=== PATIENT | male | born 1985 | race African-American/Black ===

== ENCOUNTER 2020-05-19 10:57 | Emergency (ER) | payer OTHER, SELFPAY ==
--- NOTE | 2020-05-19 | XR_ITS ---
EXAMINATION: XR HAND, RIGHT CLINICAL INFORMATION: Crushing injury third finger COMPARISON: None TECHNIQUE: PA, lateral, and oblique views of the right hand. FINDINGS: There is no evidence of acute fracture or dislocation of the right hand or wrist. No radiopaque foreign body identified. There is mild soft tissue prominence about the distal third phalanx. There appears be a small soft tissue laceration about the volar aspect. No degenerative changes seen. XR/XR hand RT min 3V IMPRESSION: No evidence of acute fracture or dislocation of the right hand or wrist.
[2020-05-19 11:14] VITALS: BP 121/66; PULSE 58; RESP 18; TEMP 36.4; O2SAT 98; BMI 23.7
--- NOTE | 2020-05-19 12:11 | ED_ITS ---
HPI - Extremity Problem General Chief complaint: Extremity Injury, Upper Stated complaint: finger inj,work related Time Seen by Provider: 05/19/20 11:29 Source: patient Mode of arrival: ambulatory Limitations: no limitations History of Present Illness HPI Narrative: 34-year-old male presenting to the ED after sustaining a work related injury he works for [employer] and when attempting to lower a dock plate it fell onto his right hand 3rd digit he sustained a laceration this occurred at approximately 04:00am prior to arrival and since then has been having numbness to the finger although reports a chronic history of right arm numbness worse since the crush injury. Reports he is not up-to-date on tetanus. Denies any fevers, drainage, inability to move the finger any other injuries complaints or concerns at this time. Related Data Home Medications Medication Instructions Recorded Confirmed No Known Home Meds 04/26/20 04/26/20 Previous Rx's Medication Instructions Recorded cephalexin [Keflex] 500 mg PO Q6H 10 Days #40 cap 05/19/20 doxycycline monohydrate 100 mg PO BID 10 Days #20 cap 05/19/20 ibuprofen 800 mg PO Q8H PRN #14 tab 05/19/20 oxycodone-acetaminophen [Percocet] 1 tab PO Q6H PRN #10 tab 05/19/20 Allergies Allergy/AdvReac Type Severity Reaction Status Date / Time No Known Allergies Allergy Verified 04/26/20 13:38 Review of Systems Review of Systems: Constitutional : No Fever, No Chills, Cardiovascular : No Chest Pain, No SOB Respiratory : No Dyspnea Gastrointestinal : No abdominal pain Musculoskeletal : No Joint Swelling Skin : + skin laceration, No Foreign bodies, No rash, No surrounding erythema Neuro : No Weakness, + Numbness/tingling Psych : No SI/HI/thoughts of self injury Yes all other systems are reviewed and are negative [facility] Past Medical History Attestation statement: The following information was validated with the patient. Medical History Asthma Sickle cell anemia Surgical History History of rotator cuff surgery Family History Family History Mother No problems noted. Social History Social History Alcohol intake: current Alcohol intake frequency: other Smoking Status: Current every day smoker Tobacco Type: Cigarette Cigarettes Per Day: 20 Advance Directives: No Advance Directives Information Provided: No Physical Exam Vital Signs: Vital Signs: Last Vital Signs Temp 97.5 F 05/19/20 11:14 Pulse 58 05/19/20 11:14 Resp 18 05/19/20 11:14 BP 121/66 05/19/20 11:14 Pulse Ox 98 05/19/20 11:14 Body Mass Index 23.7 vital signs have been reviewed as normal and appeared to be correct. Blood pressure normal. Heart rate normal. Respiration rate normal. Temperature normal. Oxygen saturation normal. Appearance: Alert. Oriented X3. No acute distress. Head: Normal external exam. Normocephalic. Atraumatic. Eyes: PERRLA. EOMI. Conjunctiva and sclera normal. Eyelids normal. ENT: Pharynx normal. Uvula midline. Moist mucous membranes. Neck: Normal inspection. Neck supple. FROM. No adenopathy. No meningeal signs. CVS: Normal heart rate and rhythm. Heart sound normal. No murmurs noted. Pulses normal throughout. Respiratory: No respiratory distress. Painless inspiration. Breath sounds normal. No wheezes/rales/rhonchi noted. Chest nontender. No accessory muscle usage noted or decreased air movement noted. Back: Full range of motion noted. Skin: Skin warm and dry. Normal skin color. Normal skin turgor. No rashes/lesions noted. Extremities: to Right hand palmar aspect at the PIP joint of the index finger there is the circular flap laceration that appears to be healing noted. No foreign bodies or active bleeding at this time. No laxity noted. Tendons and ligaments are intact to all fingers. Patient complaining of tenderness on palpating the entire finger. No other injuries noted to the right hand. Otherwise all other Extremities exhibit normal range of motion and nontender. Neuro: Oriented X 3. No motor deficit. No sensory deficit. Reflexes normal. Course Course Course Narrative: 34-year-old male presenting to the ED after he sustained a crushing right hand injury where he sustained a laceration at 04:00 am prior to arrival while at work one of the dock plate fell onto his hand. - x-ray obtained and negative for any acute processes. Tetanus updated at this time. Patient's wound appears to be healing at this time and is superficial therefore no indication for sutures at this time. Will place in an aluminum finger stick with a clean dressing. Update the patient's tetanus. Give the patient symptomatic treatment. Instructed patient to call [employer] and confirm with them who he should follow up for work related injury paperwork/follow-up. Will DC home with instructions to return if any new or worsening symptoms to follow up with Work connection for [employer]. Patient understands agrees the plan. MDM - Extremity (Nontraumatic) Medical Records Attestation: I reviewed the patient's medical records. Imaging Data Right hand: Attestation: I personally reviewed and interpreted this imaging study as follows: Radiologist's impression: FINDINGS: There is no evidence of acute fracture or dislocation of the right hand or wrist. No radiopaque foreign body identified. There is mild soft tissue prominence about the distal third phalanx. There appears be a small soft tissue laceration about the volar aspect. No degenerative changes seen. XR/XR hand RT min 3V IMPRESSION: No evidence of acute fracture or dislocation of the right hand or wrist. Discharge Plan Discharge Clinical Impression: Finger sprain, Laceration of finger, Contusion Patient Disposition: Home, Self-Care Instructions: Finger Sprain (ED), Laceration Without Closure (ED) Additional Instructions: You need to contact her employer [employer] and discussed with them who they have a contract with for were connection as you will have to follow up with them for further evaluation and treatment and clearance to return back to work. Return if any new or worsening symptoms. Prescriptions: New ibuprofen 800 mg tablet 800 mg PO Q8H PRN (Reason: pain) Qty: 14 RF: 0 oxycodone-acetaminophen [Percocet] 5-325 mg tablet 1 tab PO Q6H PRN (Reason: pain) Qty: 10 RF: 0 doxycycline monohydrate 100 mg capsule 100 mg PO BID 10 Days Qty: 20 RF: 0 cephalexin [Keflex] 500 mg capsule 500 mg PO Q6H 10 Days Qty: 40 RF: 0 No Action No Known Home Meds RF: 0 Referrals: Brandyn Nelson MD [Primary Care Provider] - 2 days (Also with Work connection for [employer]) Stand Alone Forms: Work/School Release Print Language: [place]
[2020-05-19] MEDS: oxyCODONE HCl Immed Release 5 MG TABLET PO (12:12)
== END 2020-05-19 12:28 | disposition home or self-care (01) ==
PROVIDERS: Emergency Provider Emergency Medicine Emergency Medical Services; PCP Internal Medicine
DX: S63.612A Unspecified sprain of right middle finger, initial encounter (principal); S60.412A Abrasion of right middle finger, initial encounter; M79.641 Pain in right hand; Y29.XXXA Contact with blunt object, undetermined intent, initial encounter; Y93.9 Activity, unspecified; Y92.69 Other specified industrial and construction area as the place of occurrence of the external cause; Y99.0 Civilian activity done for income or pay; Z79.899 Other long term (current) drug therapy; F17.210 Nicotine dependence, cigarettes, uncomplicated; Z71.6 Tobacco abuse counseling
CPT/HCPCS: 73130; 90471; 90715; 99283; 99284

== ENCOUNTER → 2020-06-23 13:17 | Outpatient (BNVA) | payer BC, OTHER, SELFPAY | PROVIDERS: Visit Provider Orthopaedic Surgery ==

== ENCOUNTER → 2020-07-21 09:42 | Outpatient (BNVA) | payer BC, OTHER, SELFPAY | PROVIDERS: Visit Provider Orthopaedic Surgery ==

== ENCOUNTER → 2020-08-02 13:17 | Outpatient (BNVA) | payer BC, OTHER, SELFPAY | PROVIDERS: Visit Provider Orthopaedic Surgery ==

== ENCOUNTER → 2020-09-13 13:00 | Outpatient (BNVA) | payer BC, OTHER, SELFPAY | PROVIDERS: Visit Provider Orthopaedic Surgery ==

== ENCOUNTER 2021-12-07 09:11 | Outpatient (REF) | payer OTHER, SELFPAY ==
[2021-12-07 09:45] LABS: COVID-19 Test Positive (Negative); IDNOW Serial# 9DB6401D
== END 2021-12-07 09:12 | disposition home or self-care (01) ==
LOC: HO.LAB 09:11
PROVIDERS: Visit Provider Internal Medicine
DX: Z20.822 Contact with and (suspected) exposure to COVID-19 (principal)
CPT/HCPCS: 87635; C9803